=== PATIENT | male | born 1940 | race Two or more races ===

== ENCOUNTER 2020-08-19 23:05 | Inpatient (IN) | payer OTHER ==
[~2020-08-19] VITALS: Ht 167.6 cm; Wt 68.0 kg
[2020-08-23] MEDS ORDERED: TAMSULOSIN HCL0.4 MG PO (08:07)
[2020-08-23] MEDS ORDERED: CLOTRIMAZOLE-BE15 G1 (08:07)
[2020-08-23] MEDS ORDERED: LISINOPRIL20 MG PO (08:07)
[2020-08-30] MEDS ORDERED: LISINOPRIL20 MG PO (17:13)
[2020-08-30] MEDS ORDERED: FOLIC ACID1 MG PO (17:13)
[2020-08-30] MEDS ORDERED: INTEGRA PLUS C1 EACH PO (17:13)
[2020-08-30] MEDS ORDERED: THIAMINE HCL100 MG PO (17:13)
[2020-08-30] MEDS ORDERED: Neurin-Sl Tablet Sl SL (17:13)
[2020-08-30] MEDS ORDERED: PROTONIX40 MG PO (17:13)
[2020-08-30] MEDS ORDERED: CARAFATE1 GM PO (17:13)
[2020-08-30] MEDS ORDERED: TOPROL XL25 M1 PO (17:13)
[2020-08-30] MEDS ORDERED: PEPCID AC20 MG PO (17:13)
[2020-08-30] MEDS ORDERED: AMLODIPINE BESYL5 MG PO (17:13)
[2020-08-30] MEDS ORDERED: TAMS0.4C PO (17:13)
== END 2020-08-30 17:44 | disposition home or self-care (01) | DRG 812 ==
LOC: ER 23:05 → SEC-K 08-20 15:02 → MEDI 08-20 15:02
PROVIDERS: ADMIT Internal Medicine; ATTEND Internal Medicine
PROC: 4A12X4Z Monitoring of Cardiac Electrical Activity, External Approach (ICD-10-PCS; principal; 2020-08-20)
PROC: CD271ZZ Tomographic (Tomo) Nuclear Medicine Imaging of Gastrointestinal Tract using Technetium 99m (Tc-99m) (ICD-10-PCS; 2020-08-20)
PROC: BW41ZZZ Ultrasonography of Abdomen and Pelvis (ICD-10-PCS; 2020-08-20)
PROC: 30233N1 Transfusion of Nonautologous Red Blood Cells into Peripheral Vein, Percutaneous Approach (ICD-10-PCS; 2020-08-21)
PROC: 0DB68ZX Excision of Stomach, Via Natural or Artificial Opening Endoscopic, Diagnostic (ICD-10-PCS; 2020-08-27)
DX: D50.0 Iron deficiency anemia secondary to blood loss (chronic) (principal); K92.1 Melena; I10 Essential (primary) hypertension; E55.9 Vitamin D deficiency, unspecified; Z85.46 Personal history of malignant neoplasm of prostate; T39.395A Adverse effect of other nonsteroidal anti-inflammatory drugs [NSAID], initial encounter; F10.20 Alcohol dependence, uncomplicated; F17.290 Nicotine dependence, other tobacco product, uncomplicated; Z20.828 Contact with and (suspected) exposure to other viral communicable diseases; R97.0 Elevated carcinoembryonic antigen [CEA]; K29.40 Chronic atrophic gastritis without bleeding; K26.9 Duodenal ulcer, unspecified as acute or chronic, without hemorrhage or perforation

== ENCOUNTER 2020-08-31 08:28 | Emergency (ER) | payer OTHER ==
[~2020-08-31] VITALS: Ht 170.2 cm; Wt 62.6 kg
[~2020-08-31 08:28] MED LIST: AMLODIPINE BESYL5 MG PO; CARAFATE1 GM PO; CLOTRIMAZOLE-BE15 G1; FOLIC ACID1 MG PO; INTEGRA PLUS C1 EACH PO; LISINOPRIL20 MG PO; Neurin-Sl Tablet Sl SL; PEPCID AC20 MG PO; PROTONIX40 MG PO; TAMS0.4C PO; TAMSULOSIN HCL0.4 MG PO; THIAMINE HCL100 MG PO; TOPROL XL25 M1 PO
== END 2020-08-31 16:27 | disposition home or self-care (01) ==
LOC: ER 08:28
DX: K92.1 Melena (principal); Z03.818 Encounter for observation for suspected exposure to other biological agents ruled out

== ENCOUNTER 2022-03-12 09:22 | Inpatient (IN) | payer OTHER ==
[~2022-03-12] VITALS: Ht 165.1 cm; Wt 63.5 kg
--- NOTE | 2022-03-12 10:47 | NUR ---
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
--- NOTE | 2022-03-12 12:37 | NUR ---
SE ORIENTA PTE SOBRE EL TRTAMIENTO ORDENADO POR LA DRA VERA PTE ALERTA Y ORIENTADO POR 3 SE CONECTA A MONITOR CARDIACO Y OXYMETRIA DE PULSO SE REALIZAN MUESTRAS DE LABORATORIO Y SE ADMINISTRAN MEDICAMENTO ROEL ORDENADO. PTE SE MANTIENE EN OBSERVACION Y BAJO TRATAMIENTO
--- NOTE | 2022-03-12 15:20 | NUR ---
SE RECIBE PTE MASCULINO DEL TURNO ANTERIOR ALERTA Y ORIENTADO X3 EN CAMA #18 CONECTADO A MONITOR CARDIACO Y OXIMETRIA DE PULSO. PACIENTE SE OBSERVA CON CANULA NASAL A 3LT. SE OBSERVA CON CARTER CANALIZACION #18 EN MANO DERECHA CON CARDIZEM BAJANDO A 10 ML/HR. VENOPUNCION RUTHANN DE ENROJECIMIENTO Y EDEMA. SE OBSERVA CON CANALIZACION EN BRAZO IRVING #20 CONECTADO CON 0.9 NSS DE 500 ML BAJANDO A 85 ML/HR, VENOPUNCION RUTHANN DE ENROJECIMIENTO Y EDEMA. PACIENTE EN ESPERA DE REPETIR TROPONINA A LAS 4:30 PM Y PENDIENTE CONSULTA CON DR MILLER. SE MANTIENE EN CAMA POSICION MAS BAJA CON BARANDAS ELEVADAS Y CONNOLLY DE IDENTIFICACION POR PRECAUSION.
== END 2022-03-20 18:45 | disposition expired | DRG 291 ==
LOC: ER 09:22 → ICU-2 18:18 → ICU 03-14 14:55
PROVIDERS: ADMIT Internal Medicine; ATTEND Internal Medicine
PROC: B24BZZZ Ultrasonography of Heart with Aorta (ICD-10-PCS; principal; 2022-03-12)
PROC: 4A12X4Z Monitoring of Cardiac Electrical Activity, External Approach (ICD-10-PCS; 2022-03-12)
PROC: 3E0F7SF Introduction of Other Gas into Respiratory Tract, Via Natural or Artificial Opening (ICD-10-PCS; 2022-03-12)
PROC: BW40ZZZ Ultrasonography of Abdomen (ICD-10-PCS; 2022-03-14)
PROC: 0BH17EZ Insertion of Endotracheal Airway into Trachea, Via Natural or Artificial Opening (ICD-10-PCS; 2022-03-20)
DX: I11.0 Hypertensive heart disease with heart failure (principal); I50.23 Acute on chronic systolic (congestive) heart failure; J69.0 Pneumonitis due to inhalation of food and vomit; K26.4 Chronic or unspecified duodenal ulcer with hemorrhage; N17.8 Other acute kidney failure; D68.8 Other specified coagulation defects; N39.0 Urinary tract infection, site not specified; K92.0 Hematemesis; I48.0 Paroxysmal atrial fibrillation; I46.9 Cardiac arrest, cause unspecified; Z79.01 Long term (current) use of anticoagulants; I50.1 Left ventricular failure, unspecified; C61 Malignant neoplasm of prostate; I95.89 Other hypotension; D64.89 Other specified anemias; N40.1 Benign prostatic hyperplasia with lower urinary tract symptoms; Z87.891 Personal history of nicotine dependence; Z20.822 Contact with and (suspected) exposure to COVID-19